=== PATIENT | male | born 1965 | race African-American/Black ===

== ENCOUNTER 2022-12-02 08:18 | Emergency (ER) | payer OTHER ==
[2022-12-02 08:35] VITALS: RESP 20; BMI 25.8
[2022-12-02] MEDS ORDERED: METHOCARBAMOL 500 MG TABLET PO ONE (08:52)
[2022-12-02] MEDS ORDERED: KETOROLAC TROMETHAMINE 30 MG/1 ML VIAL IM ONE (08:56)
[2022-12-02] MEDS ORDERED: METHOCARBAMOL 500 MG TABLET ONE (09:25)
[2022-12-02 10:56] VITALS: BP 120/72; PULSE 60; TEMP 97.4
== END 2022-12-02 10:56 | disposition home or self-care (01) ==
LOC: JER 08:18
PROC: 3E0233Z Introduction of Anti-inflammatory into Muscle, Percutaneous Approach (ICD-10-PCS; principal; 2022-12-02)
DX: M54.50 Low back pain, unspecified (principal); S13.4XXA Sprain of ligaments of cervical spine, initial encounter; M62.830 Muscle spasm of back; V87.2XXA Person injured in collision between car and pick-up truck or van (traffic), initial encounter; Y92.410 Unspecified street and highway as the place of occurrence of the external cause
CPT/HCPCS: 99284-25